=== PATIENT | female | born 1975 | race Caucasian/White ===

== ENCOUNTER 2019-10-08 11:34 | Emergency (ER) | payer MEDICAID ==
[~2019-10-08] VITALS: Ht 160 cm; Wt 80.0 kg
[2019-10-08 11:52] VITALS: BP 118/71
[2019-10-08] MEDS ORDERED: SILVER SULFADIAZINE 1% CREAM 25GM TOP ONE (13:00)
== END 2019-10-08 13:12 | disposition home or self-care (01) ==
LOC: ER 11:34
DX: L55.0 Sunburn of first degree (principal)
CPT/HCPCS: 99281; 99282; 99283